=== PATIENT | female | born 1985 | race Caucasian/White ===

== ENCOUNTER 2023-09-12 20:28 | Emergency (ER) | payer OTHER, SELFPAY ==
[2023-09-12 21:11] LABS: #Basophils 0.1 thou/uL (0.0-0.2); #Eosinphils 0.2 thou/uL (0.0-0.7); #Monocytes 0.5 thou/uL (0.11-0.59); #Neutrophils 6.1 thou/uL (1.40-6.50); %Basophils 0.5 % (0.0-1.0); %Eosinophils 1.5 % (0.0-10.0); %Lymphocytes 37.6 % (21.0-51.0); %Monocytes 4.6 % (0.0-10.0); %Neutrophils 55.4 % (42.0-75.0); Hematocrit 39.7 % (36.0-47.0); Hemoglobin 13.1 g/dL (12.0-16.0); Mean Corpuscular Hemoglobin 31.4 pg (27.0-31.0); Mean Corpuscular Volume 95.2 fl (78.0-98.0); Mean Platelet Volume 10.6 fL (7.4-10.4); Platelet Count 254 10x3/uL (130-400); RBC Distribution Width 12.4 % (11.5-14.5); Red Blood Cell (RBC) Count 4.17 mill/uL (4.20-5.40); White Blood Cell (WBC) Count 11.1 10x3/uL (4.8-10.8)
[2023-09-12] MEDS ORDERED: Ketorolac Tromethamine 30 MG/ML VIAL ONE (21:30)
[2023-09-12 21:35] LABS: ALT (SGPT) 20 U/L (8-55); AST (SGOT) 17 U/L (5-34); Albumin 4.3 g/dL (3.5-5.0); Alkaline Phosphatase 44 U/L (40-110); Anion Gap 12 mmol/L (10-20); BUN (Urea Nitrogen) 8 mg/dL (7.0-18.7); Bilirubin, Total 0.3 mg/dL (0.2-1.2); Calc. Creatinine Clearance 0 mL/min (70-130); Calcium 8.6 mg/dL (7.8-10.44); Carbon Dioxide 23 mmol/L (22-29); Chloride 105 mmol/L (98-107); Estimated GFR 105; Globulin 2.7 g/dL (2.4-3.5); Glucose 110 mg/dL (70-105); Lipase 18 U/L (8-78); Potassium 4.3 mmol/L (3.5-5.1); Sodium 136 mmol/L (136-145)
[2023-09-12 21:37] LABS: Troponin I Less than 0.010 ng/mL (< 0.028)
== END 2023-09-12 22:22 | disposition home or self-care (01) ==
LOC: ERS 20:28
DX: R07.89 Other chest pain (principal); I10 Essential (primary) hypertension; Z87.891 Personal history of nicotine dependence
CPT/HCPCS: 36415; 71045; 80053; 83690; 84484; 85025; 93005; 94760; 96374; J1885

== ENCOUNTER 2024-10-20 10:11 | Inpatient (IN) | payer OTHER ==
[2024-10-20 10:50] LABS: #Basophils 0.06 10x3/uL (0.0-0.2); %Basophils 0.7 % (0.0-1.0); %Eosinophils 1.7 % (0.0-10.0); %Lymphocytes 29.5 % (21.0-51.0); %Monocytes 4.6 % (0.0-10.0); %Neutrophils 63.3 % (42.0-75.0); Hematocrit 38.9 % (36.0-47.0); Hemoglobin 12.8 g/dL (12.0-16.0); Mean Corpuscular HGB CONC 32.9 g/dL (32.0-36.0); Mean Corpuscular Hemoglobin 30.3 pg (27.0-31.0); Mean Corpuscular Volume 92.2 fL (78.0-98.0); Mean Platelet Volume 10.4 fL (7.4-10.4); Platelet Count 315 10x3/uL (130-400); RBC Distribution Width 12.6 % (11.5-14.5); Red Blood Cell (RBC) Count 4.22 mill/uL (4.20-5.40)
[2024-10-20 11:12] LABS: Troponin I Less than 0.010 ng/mL (< 0.028)
[2024-10-20 11:15] LABS: ALT (SGPT) 20 U/L (Less than 34); Albumin 3.9 g/dL (3.1-4.5); Alkaline Phosphatase 73 U/L (40-110); Anion Gap 11 mmol/L (10-20); BUN (Urea Nitrogen) 9 mg/dL (7.0-18.7); Bilirubin, Total 0.2 mg/dL (0.3-1.2); Calc. Creatinine Clearance 0 mL/min (70-130); Carbon Dioxide 23 mmol/L (22-29); Chloride 108 mmol/L (98-107); Estimated GFR 115; Globulin 3.4 g/dL (2.4-3.5); Glucose 105 mg/dL (70-105); Potassium 4.2 mmol/L (3.5-5.1); Protein, Total 7.3 g/dL (6.0-8.3); Sodium 138 mmol/L (136-145)
[2024-10-20] MEDS ORDERED: Aspirin Chewable 81 MG TAB ONE (11:17)
[2024-10-20] MEDS ORDERED: Ketorolac Tromethamine 30 MG (1 mL) VIAL ONE (11:21)
[2024-10-20 11:29] LABS: AST (SGOT) 19 U/L (11-34)
[2024-10-20 13:29] VITALS: BMI 28.3
[2024-10-20] MEDS ORDERED: hydrOXYzine 25 MG TAB ONE (13:39)
[2024-10-20] MEDS ORDERED: Morphine 2 MG/ML VIAL ONE (13:40)
[2024-10-20] MEDS: hydrOXYzine 25 MG TAB PO SCH (13:45)
[2024-10-20] MEDS: Morphine 2 MG/ML VIAL SLOW IVP SCH ×2 (13:45→23:13)
[2024-10-20] MEDS ORDERED: Ondansetron PF 4 MG/2 ML Vial ONE (16:24)
[2024-10-20] MEDS: Ondansetron ODT 4 MG TAB PO PRN (16:30)
[2024-10-20] MEDS ORDERED: Communication Order-Pharmacy FS SCH (17:00)
[2024-10-20 18:01] LABS: Troponin I Less than 0.010 ng/mL (< 0.028)
[2024-10-20] MEDS ORDERED: predniSONE 20 MG TAB ONE (18:49)
[2024-10-20] MEDS ORDERED: Acetaminophen 325 MG TAB ONE (18:49)
[2024-10-20] MEDS ORDERED: diphenhydrAMINE 25 MG CAP ONE (18:49)
[2024-10-20] MEDS: Acetaminophen 325 MG TAB PO PRN (18:52)
[2024-10-20] MEDS: diphenhydrAMINE 25 MG CAP PO SCH (18:53)
[2024-10-20] MEDS: predniSONE 20 MG TAB PO SCH (18:53)
[2024-10-20] MEDS: Atorvastatin Calcium 40 MG TAB PO SCH (21:31)
[2024-10-20] MEDS: Carvedilol 6.25 MG TAB PO SCH (21:31)
[2024-10-20] MEDS: Valsartan 80 MG TAB PO SCH (21:31)
[2024-10-21 05:02] LABS: #Basophils Less than 0.03 10x3/uL (0.0-0.2); #Eosinophils Less than 0.03 10x3/uL (0.0-0.7); %Basophils 0.2 % (0.0-1.0); %Lymphocytes 7.1 % (21.0-51.0); %Monocytes 0.5 % (0.0-10.0); %Neutrophils 91.7 % (42.0-75.0); Hematocrit 36.8 % (36.0-47.0); Hemoglobin 11.9 g/dL (12.0-16.0); Mean Corpuscular HGB CONC 32.3 g/dL (32.0-36.0); Mean Corpuscular Hemoglobin 30.1 pg (27.0-31.0); Mean Corpuscular Volume 92.9 fL (78.0-98.0); Mean Platelet Volume 10.9 fL (7.4-10.4); Platelet Count 274 10x3/uL (130-400); RBC Distribution Width 12.4 % (11.5-14.5); Red Blood Cell (RBC) Count 3.96 mill/uL (4.20-5.40)
[2024-10-21 05:45] LABS: ALT (SGPT) 19 U/L (Less than 34); AST (SGOT) 21 U/L (11-34); Albumin 3.5 g/dL (3.1-4.5); Alkaline Phosphatase 71 U/L (40-110); Anion Gap 13 mmol/L (10-20); BUN (Urea Nitrogen) 13 mg/dL (7.0-18.7); Bilirubin, Total 0.3 mg/dL (0.3-1.2); Calc. Creatinine Clearance 124 mL/min (70-130); Calcium 8.5 mg/dL (7.8-10.44); Carbon Dioxide 23 mmol/L (22-29); Chloride 107 mmol/L (98-107); Estimated GFR 104; Globulin 3.3 g/dL (2.4-3.5); Glucose 153 mg/dL (70-105); Potassium 4.4 mmol/L (3.5-5.1); Protein, Total 6.8 g/dL (6.0-8.3); Sodium 139 mmol/L (136-145)
[2024-10-21] MEDS ORDERED: fentaNYL 50 mcg/mL 1 mL Vial ONE (08:57)
[2024-10-21] MEDS ORDERED: Midazolam HCl 2 mg/2 ml Vial ONE (08:58)
[2024-10-21] MEDS ORDERED: EPINEPHrine 1 MG/ML VIAL ONE (08:58)
[2024-10-21] MEDS ORDERED: Heparin 10,000 UNITS/ 10 ML VIAL ONE (08:59)
[2024-10-21] MEDS ORDERED: Spironolactone 25 MG TAB PO SCH (09:00)
[2024-10-21] MEDS ORDERED: Enoxaparin 40 MG (0.4 mL) SYRINGE SC SCH (09:00)
[2024-10-21] MEDS ORDERED: Iopamidol 370 76% 100 ML VIAL ONE (09:13)
[2024-10-21] MEDS ORDERED: Nitroglycerin 0.4 MG TAB (25 Tab Bottle) SL PRN (10:17)
[2024-10-21] MEDS ORDERED: Sodium Chloride 0.9% 200 ML IV PRN (10:17)
[2024-10-21] MEDS: BuPROPion XL 150 MG ER.TAB PO SCH (10:57)
[2024-10-21] MEDS: Pantoprazole 40 MG DR.TAB PO SCH (10:57)
[2024-10-21] MEDS: Aspirin 81 mg Enteric Coated Tablet PO SCH (10:58)
[2024-10-21] MEDS: Escitalopram Oxalate 20 mg Tablet PO SCH (10:58)
[2024-10-21] MEDS: Spironolactone 25 MG TAB PO SCH (10:58)
[2024-10-21] MEDS: Acetaminophen/Codeine 30-300mg Tablet PO PRN ×2 (11:02→18:36)
[2024-10-21] MEDS: Ketorolac Tromethamine 30 MG (1 mL) VIAL IVP SCH (13:45)
[2024-10-21] MEDS: hydrOXYzine 25 MG TAB PO PRN (21:45)
[2024-10-22 05:30] LABS: #Basophils 0.04 10x3/uL (0.0-0.2); %Basophils 0.3 % (0.0-1.0); %Eosinophils 0.2 % (0.0-10.0); %Lymphocytes 25.9 % (21.0-51.0); %Monocytes 7.1 % (0.0-10.0); Hematocrit 35.5 % (36.0-47.0); Hemoglobin 11.4 g/dL (12.0-16.0); Mean Corpuscular HGB CONC 32.1 g/dL (32.0-36.0); Mean Corpuscular Hemoglobin 30.2 pg (27.0-31.0); Mean Corpuscular Volume 94.2 fL (78.0-98.0); Mean Platelet Volume 11.2 fL (7.4-10.4); Platelet Count 250 10x3/uL (130-400); RBC Distribution Width 12.8 % (11.5-14.5); Red Blood Cell (RBC) Count 3.77 mill/uL (4.20-5.40)
[2024-10-22 05:39] LABS: Chloride 108 mmol/L (98-107); Potassium 3.2 mmol/L (3.5-5.1); Sodium 140 mmol/L (136-145)
[2024-10-22 05:40] LABS: Albumin 3.3 g/dL (3.1-4.5); Glucose 98 mg/dL (70-105)
[2024-10-22 05:41] LABS: Globulin 2.5 g/dL (2.4-3.5); Protein, Total 5.8 g/dL (6.0-8.3)
[2024-10-22 05:42] LABS: Anion Gap 10 mmol/L (10-20); Carbon Dioxide 25 mmol/L (22-29)
[2024-10-22 05:43] LABS: Alkaline Phosphatase 60 U/L (40-110); Bilirubin, Total 0.1 mg/dL (0.3-1.2)
[2024-10-22 05:44] LABS: BUN (Urea Nitrogen) 8 mg/dL (7.0-18.7); Calc. Creatinine Clearance 142 mL/min (70-130); Estimated GFR 115
[2024-10-22 05:46] LABS: ALT (SGPT) 17 U/L (Less than 34); AST (SGOT) 13 U/L (11-34)
[2024-10-22] MEDS: Potassium Chloride 20 MEQ TAB PO SCH (08:33)
[2024-10-22] MEDS: FLU (Fluarix Triv) TS24-25(6MOS UP)/PF 45 MCG/0.5 ML Syringe IM ONE (08:34)
[2024-10-22 12:13] VITALS: TEMP 98
[2024-10-22 12:53] VITALS: BP 114/67
== END 2024-10-22 13:23 | disposition home or self-care (01) | DRG 286 ==
LOC: ERS 10:11 → ERHOLD 12:19 → 2NO 19:26
PROVIDERS: ADMIT Family Medicine; ATTEND Family Medicine
PROC: 4A023N7 Measurement of Cardiac Sampling and Pressure, Left Heart, Percutaneous Approach (ICD-10-PCS; principal; 2024-10-20)
PROC: B2111ZZ Fluoroscopy of Multiple Coronary Arteries using Low Osmolar Contrast (ICD-10-PCS; 2024-10-20)
PROC: B2151ZZ Fluoroscopy of Left Heart using Low Osmolar Contrast (ICD-10-PCS; 2024-10-20)
PROC: 3E033XZ Introduction of Vasopressor into Peripheral Vein, Percutaneous Approach (ICD-10-PCS; 2024-10-20)
DX: I11.0 Hypertensive heart disease with heart failure (principal); I50.33 Acute on chronic diastolic (congestive) heart failure; I20.0 Unstable angina; I35.1 Nonrheumatic aortic (valve) insufficiency; E78.5 Hyperlipidemia, unspecified; I45.10 Unspecified right bundle-branch block; F32.9 Major depressive disorder, single episode, unspecified; F41.1 Generalized anxiety disorder; Z79.899 Other long term (current) drug therapy; Z79.82 Long term (current) use of aspirin; Z88.8 Allergy status to other drugs, medicaments and biological substances
CPT/HCPCS: 36415; 71045; 80053; 83690; 83880; 84484; 85025; 93005; 93010; 93458; 93798; 94760; 96374; 99152; C1769; J0171; J1644; J1885; J2250; J2272; J2405; J3010; J7512; Q0162; Q9967